=== PATIENT | female | born 2000 | race Caucasian/White ===

== ENCOUNTER 2023-02-06 09:46 | Emergency (ER) | payer MEDICAID, SELFPAY ==
[2023-02-06] MEDS ORDERED: Ketorolac Tromethamine 30 MG/ML VIAL ONE (10:13)
== END 2023-02-06 10:43 | disposition home or self-care (01) ==
LOC: BURERS 09:46
DX: R07.89 Other chest pain (principal); F17.290 Nicotine dependence, other tobacco product, uncomplicated
CPT/HCPCS: 71046; 93005; 96372; J1885